=== PATIENT | female | born 1980 | race Caucasian/White ===

== ENCOUNTER 2022-01-11 12:06 | Outpatient (CLI) | payer BC | END 2022-01-11 12:07 | disposition home or self-care (01) | LOC: BICMAMMO 12:06 | PROVIDERS: ATTEND Obstetrics & Gynecology | DX: Z12.31 Encounter for screening mammogram for malignant neoplasm of breast (principal); Z80.3 Family history of malignant neoplasm of breast | CPT/HCPCS: 77063; 77067 ==

== ENCOUNTER 2022-02-19 09:55 | Outpatient (CLI) | payer BC | END 2022-02-19 09:56 | disposition home or self-care (01) | LOC: DTY/OP 09:55 | PROVIDERS: ATTEND Surgery | DX: E66.01 Morbid (severe) obesity due to excess calories (principal); Z68.42 Body mass index [BMI] 45.0-49.9, adult | CPT/HCPCS: 97802 ==

== ENCOUNTER 2022-06-18 11:51 | Outpatient (CLI) | payer BC, OTHER | END 2022-06-18 11:52 | disposition home or self-care (01) | LOC: LABBT 11:51 | PROVIDERS: ATTEND Surgery | DX: Z01.818 Encounter for other preprocedural examination (principal); I73.9 Peripheral vascular disease, unspecified | CPT/HCPCS: 71046; 93005; 93010 ==

== ENCOUNTER 2022-06-29 05:43 | Inpatient (IN) | payer OTHER ==
[2022-06-28 08:56] VITALS: BMI 39.9
[2022-06-29] MEDS ORDERED: Ketamine 50 MG/ML (10ML VIAL) ONE (06:35)
[2022-06-29] MEDS ORDERED: fentaNYL PF 100 MCG/2 ML SYRINGE ONE ×2 (06:35→09:00)
[2022-06-29] MEDS ORDERED: Dexmedetomidine 200 MCG/2 ML VIAL ONE (06:35)
[2022-06-29] MEDS ORDERED: Bupivacaine/Epinephrine 0.25% 30 ML VIAL ONE (06:51)
[2022-06-29] MEDS ORDERED: Levofloxacin 500 mg/D5W 100 ml Premix Bag ONE (07:14)
[2022-06-29] MEDS ORDERED: Ketorolac Tromethamine 30 MG/ML VIAL ONE (07:27)
[2022-06-29] MEDS ORDERED: Phenylephrine 10 MG/ML VIAL ONE (07:27)
[2022-06-29] MEDS ORDERED: Ondansetron PF 4 MG/2 ML Vial ONE ×2 (07:27→14:16)
[2022-06-29] MEDS ORDERED: Rocuronium Bromide 10 MG/ML (10ML VIAL) ONE (07:27)
[2022-06-29] MEDS ORDERED: PROPOFOL 200 MG/20 ML VIAL ONE (07:27)
[2022-06-29] MEDS ORDERED: NEOSTIGMINE 3 MG/3 ML SYR 3 MG/3 ML SYRINGE ONE (07:27)
[2022-06-29] MEDS ORDERED: Glycopyrrolate 0.2 MG/ML 5 ML SYRINGE ONE (07:27)
[2022-06-29] MEDS ORDERED: Dexamethasone 20 MG/5 ML VIAL ONE (07:27)
[2022-06-29 07:48] LABS: SARS-CoV-2 NAA Rapid Test Not Detected (NotDetected)
[2022-06-29] MEDS ORDERED: Promethazine HCl 25 MG/ML VIAL IM PRN ×2 (08:39→08:45)
[2022-06-29] MEDS ORDERED: Dextrose 5% in Water 1,000 ML IV PRN (08:39)
[2022-06-29] MEDS ORDERED: Dextrose 50% Abboject 50 ML SYRINGE SLOW IVP PRN (08:39)
[2022-06-29] MEDS ORDERED: Ondansetron PF 4 MG/2 ML Vial IVP PRN (08:39)
[2022-06-29] MEDS ORDERED: Hydrocodone-Acetamin 15 ML UDCUP PO PRN (08:39)
[2022-06-29] MEDS ORDERED: diphenhydrAMINE 50 MG/ML VIAL IVP PRN ×2 (08:39→08:45)
[2022-06-29] MEDS ORDERED: FENTANYL 500 MCG/10 ML VIAL 2,000 MCG in Sodium Chloride 0.9% 60 ML IV PRN (08:45)
[2022-06-29] MEDS ORDERED: Communication Order-Pharmacy FS SCH (08:45)
[2022-06-29] MEDS ORDERED: Naloxone HCl 0.4 mg/ml Vial IV PRN (08:45)
[2022-06-29] MEDS ORDERED: Promethazine HCl 25 MG/ML VIAL IVPB PRN (08:45)
[2022-06-29] MEDS ORDERED: Ondansetron HCl/PF 4 MG/2 ML Vial IVP PRN (08:45)
[2022-06-29] MEDS ORDERED: diphenhydrAMINE 25 MG CAP PO PRN (08:45)
[2022-06-29] MEDS ORDERED: diphenhydrAMINE 50 MG/ML VIAL IM PRN (08:45)
[2022-06-29] MEDS ORDERED: Promethazine HCl 25 MG/ML VIAL ONE (09:00)
[2022-06-29] MEDS: D5 1/2 NS w/20 mEq KCL 1,000 ML IV SCH ×2 (09:15→17:28)
[2022-06-29] MEDS ORDERED: D5 1/2 NS w/20 mEq KCL 1,000 ML ONE (09:44)
[2022-06-29] MEDS ORDERED: hydrALAZINE 20 MG/ML VIAL ONE ×2 (09:57→14:16)
[2022-06-29] MEDS: Bupropion 150 MG SR TAB PO SCH (13:54)
[2022-06-29] MEDS: Pantoprazole 40 MG VIAL IVP SCH ×2 (13:54→17:28)
[2022-06-29] MEDS: Losartan 25 MG TAB PO SCH (13:54)
[2022-06-29] MEDS: hydrALAZINE 20 MG/ML VIAL SLOW IVP PRN ×2 (14:25→21:57)
[2022-06-29] MEDS: Ondansetron PF 4 MG/2 ML Vial IVP PRN ×2 (14:27→20:12)
[2022-06-29] MEDS: Promethazine HCl 25 MG/ML VIAL IM PRN (16:12)
[2022-06-29] MEDS: Labetalol HCl 100 MG/20 ML VIAL SLOW IVP PRN ×2 (17:32→21:58)
[2022-06-29] MEDS: Carvedilol 6.25 MG TAB PO SCH (21:16)
[2022-06-30] MEDS: D5 1/2 NS w/20 mEq KCL 1,000 ML IV SCH ×4 (01:52→19:48)
[2022-06-30] MEDS ORDERED: Enoxaparin Sodium 40 MG/0.4 ML SYRINGE SC SCH (06:00)
[2022-06-30 06:39] LABS: #Lymphocytes 2.3 thou/uL (1.20-3.40); #Monocytes 1.2 thou/uL (0.11-0.59); #Neutrophils 9.8 thou/uL (1.40-6.50); %Basophils 0.4 % (0.0-1.0); %Eosinophils 0.2 % (0.0-10.0); %Lymphocytes 17.1 % (21.0-51.0); %Monocytes 8.6 % (0.0-10.0); %Neutrophils 73.7 % (42.0-75.0); Hemoglobin 13.3 g/dL (12.0-16.0); Mean Corpuscular HGB CONC 34.2 g/dL (32.0-36.0); Mean Corpuscular Hemoglobin 33.2 pg (27.0-31.0); Mean Platelet Volume 8.1 fL (7.4-10.4); Platelet Count 244 10x3/uL (130-400); RBC Distribution Width 12.2 % (11.5-14.5); Red Blood Cell (RBC) Count 3.99 mill/uL (4.20-5.40); White Blood Cell (WBC) Count 13.3 10x3/uL (4.8-10.8)
[2022-06-30] MEDS: Ketorolac Tromethamine 30 MG/ML VIAL IVP PRN ×2 (06:40→13:06)
[2022-06-30 06:54] LABS: Anion Gap 12 mmol/L (10-20); BUN (Urea Nitrogen) 4 mg/dL (7.0-18.7); Calc. Creatinine Clearance 173 mL/min (70-130); Calcium 8.7 mg/dL (7.8-10.44); Carbon Dioxide 22 mmol/L (22-29); Chloride 107 mmol/L (98-107); Estimated GFR 92; Glucose 116 mg/dL (70-105); Potassium 3.4 mmol/L (3.5-5.1); Sodium 138 mmol/L (136-145)
[2022-06-30] MEDS: Promethazine HCl 25 MG/ML VIAL IM PRN (10:57)
[2022-06-30] MEDS: hydrALAZINE 20 MG/ML VIAL SLOW IVP PRN (11:06)
[2022-06-30] MEDS: Bupropion 150 MG SR TAB PO SCH (12:49)
[2022-06-30] MEDS: Carvedilol 6.25 MG TAB PO SCH ×2 (12:50→19:52)
[2022-06-30] MEDS: Losartan 25 MG TAB PO SCH (12:50)
[2022-06-30] MEDS ORDERED: Meperidine HCl/PF 25 MG/ML VIAL SLOW IVP SCH (13:00)
[2022-06-30] MEDS: Pantoprazole 40 MG VIAL IVP SCH (13:08)
[2022-06-30] MEDS ORDERED: diphenhydrAMINE 50 MG/ML VIAL IM PRN (13:31)
[2022-06-30] MEDS ORDERED: diphenhydrAMINE 25 MG CAP PO PRN (13:31)
[2022-06-30] MEDS ORDERED: HYDROmorphone 10 mg/100 ml CADD IVPB PRN (13:31)
[2022-06-30] MEDS ORDERED: Zolpidem Tartrate 5 MG TAB PO PRN (13:31)
[2022-06-30] MEDS ORDERED: Naloxone HCl 0.4 mg/ml Vial IV PRN (13:31)
[2022-06-30] MEDS ORDERED: Communication Order-Pharmacy FS SCH (13:45)
[2022-06-30] MEDS: diphenhydrAMINE 50 MG/ML VIAL IVP PRN (18:02)
[2022-07-01] MEDS: Promethazine HCl 25 MG/ML VIAL IM PRN ×3 (01:05→15:10)
[2022-07-01] MEDS: Ketorolac Tromethamine 30 MG/ML VIAL IVP PRN ×2 (01:11→10:29)
[2022-07-01] MEDS: D5 1/2 NS w/20 mEq KCL 1,000 ML IV SCH ×2 (04:08→18:05)
[2022-07-01] MEDS: hydrALAZINE 20 MG/ML VIAL SLOW IVP PRN ×3 (04:09→13:22)
[2022-07-01] MEDS: Ondansetron PF 4 MG/2 ML Vial IVP PRN ×3 (06:23→21:14)
[2022-07-01] MEDS ORDERED: Metoclopramide HCl 10 MG/2 ML VIAL IVP SCH (10:00)
[2022-07-01] MEDS: diphenhydrAMINE 50 MG/ML VIAL IVP PRN (10:29)
[2022-07-01] MEDS ORDERED: FENTANYL 50 MCG/ML 1 ML VIAL SLOW IVP PRN (10:43)
[2022-07-01] MEDS ORDERED: SUMAtriptan Succinate 25 MG TAB PO SCH ×2 (13:30→22:15)
[2022-07-01] MEDS: Enoxaparin Sodium 40 MG/0.4 ML SYRINGE SC SCH (15:15)
[2022-07-01] MEDS: Pantoprazole 40 MG VIAL IVP SCH (15:15)
[2022-07-01] MEDS: Cyclobenzaprine 10 MG TAB PO SCH ×2 (15:16→17:58)
[2022-07-01] MEDS: hydrOXYzine 25 MG TAB PO PRN ×2 (15:17→17:59)
[2022-07-01] MEDS: Hydrocodone-Acetamin 15 ML UDCUP PO PRN ×2 (15:27→21:14)
[2022-07-01] MEDS: Bupropion 150 MG SR TAB PO SCH (17:41)
[2022-07-01] MEDS: Carvedilol 6.25 MG TAB PO SCH ×2 (17:41→21:14)
[2022-07-01] MEDS: Losartan 25 MG TAB PO SCH (17:41)
[2022-07-02] MEDS: D5 1/2 NS w/20 mEq KCL 1,000 ML IV SCH ×2 (02:12→11:06)
[2022-07-02] MEDS: Ondansetron PF 4 MG/2 ML Vial IVP PRN (04:47)
[2022-07-02] MEDS: Hydrocodone-Acetamin 15 ML UDCUP PO PRN (04:48)
[2022-07-02] MEDS ORDERED: SUMAtriptan Succinate 50 MG TAB PO PRN (07:29)
[2022-07-02] MEDS ORDERED: Cyclobenzaprine 10 MG TAB PO PRN (08:04)
[2022-07-02] MEDS: Losartan 25 MG TAB PO SCH (08:27)
[2022-07-02] MEDS: Carvedilol 6.25 MG TAB PO SCH (08:28)
[2022-07-02] MEDS: Ketorolac Tromethamine 30 MG/ML VIAL IVP PRN (08:28)
[2022-07-02] MEDS: Bupropion 150 MG SR TAB PO SCH (08:28)
[2022-07-02] MEDS: Pantoprazole 40 MG VIAL IVP SCH (08:28)
[2022-07-02] MEDS: Enoxaparin Sodium 40 MG/0.4 ML SYRINGE SC SCH (08:29)
[2022-07-02 09:25] VITALS: TEMP 97.8
[2022-07-02] MEDS: Promethazine HCl 25 MG/ML VIAL IM PRN (10:29)
[2022-07-02 11:46] VITALS: BP 156/96
== END 2022-07-02 11:26 | disposition home or self-care (01) | DRG 621 ==
LOC: SURG A 05:43
PROVIDERS: ADMIT Surgery; ATTEND Surgery
PROC: 0DB64Z3 Excision of Stomach, Percutaneous Endoscopic Approach, Vertical (ICD-10-PCS; principal; 2022-06-29)
PROC: 8E0W4CZ Robotic Assisted Procedure of Trunk Region, Percutaneous Endoscopic Approach (ICD-10-PCS; 2022-06-29)
DX: E66.01 Morbid (severe) obesity due to excess calories (principal); I10 Essential (primary) hypertension; Z68.41 Body mass index [BMI] 40.0-44.9, adult; G47.00 Insomnia, unspecified; K21.9 Gastro-esophageal reflux disease without esophagitis; Z88.0 Allergy status to penicillin; Z79.899 Other long term (current) drug therapy; G43.909 Migraine, unspecified, not intractable, without status migrainosus
CPT/HCPCS: 36415; 80048; 85025; 88307; C9113; J0360; J1100; J1200; J1650; J1885; J1956; J2370; J2405; J2550; J2704; J2765; J3480; U0002

== ENCOUNTER 2022-07-14 10:58 | Day surgery (SDC) | payer BC ==
[~2022-07-14 10:58] MED LIST: Multivitamins, Adult 10 ML, Thiamine HCl 100 MG in Sodium Chloride 0.9% 1,000 ML IV SCH; Ondansetron PF 4 MG/2 ML Vial IVP PRN; Sodium Chloride 0.9% 1,000 ML IV SCH
[2022-07-14 16:11] VITALS: BP 108/75; TEMP 97
== END 2022-07-14 16:36 | disposition home or self-care (01) ==
LOC: ONC/OP 10:58
PROVIDERS: ATTEND Surgery
DX: E86.0 Dehydration (principal); Z88.0 Allergy status to penicillin; Z88.8 Allergy status to other drugs, medicaments and biological substances
CPT/HCPCS: 96361; 96365; 96366; J3411; J7050

== ENCOUNTER 2022-07-21 10:28 | Day surgery (SDC) | payer BC ==
[2022-07-21] MEDS ORDERED: Ondansetron PF 4 MG/2 ML Vial IVP PRN (10:48)
[2022-07-21] MEDS ORDERED: Sodium Chloride 0.9% 1,000 ML IV SCH (11:00)
[2022-07-21] MEDS ORDERED: Multivitamins, Adult 10 ML, Thiamine HCl 100 MG in Sodium Chloride 0.9% 1,000 ML IV SCH (11:00)
[2022-07-21 12:51] VITALS: BP 131/87; TEMP 97.7
== END 2022-07-21 13:35 | disposition home or self-care (01) ==
LOC: ONC/OP 10:28
PROVIDERS: ATTEND Surgery
DX: E86.0 Dehydration (principal); Z88.0 Allergy status to penicillin; Z88.8 Allergy status to other drugs, medicaments and biological substances
CPT/HCPCS: 96365; 96366; J3411; J7050

== ENCOUNTER 2023-05-19 11:51 | Outpatient (CLI) | payer BC | END 2023-05-19 11:52 | disposition home or self-care (01) | LOC: BICMAMMO 11:51 | PROVIDERS: ATTEND Family Medicine | DX: Z12.31 Encounter for screening mammogram for malignant neoplasm of breast (principal); Z80.3 Family history of malignant neoplasm of breast | CPT/HCPCS: 77063; 77067 ==

== ENCOUNTER 2024-05-22 08:07 | Outpatient (CLI) | payer BC | END 2024-05-22 08:08 | disposition home or self-care (01) | LOC: BICMAMMO 08:07 | PROVIDERS: ATTEND Obstetrics & Gynecology | DX: Z12.31 Encounter for screening mammogram for malignant neoplasm of breast (principal); Z80.3 Family history of malignant neoplasm of breast | CPT/HCPCS: 77063; 77067 ==

== ENCOUNTER 2025-05-23 12:47 | Outpatient (CLI) | payer BC | END 2025-05-23 12:48 | disposition home or self-care (01) | LOC: BICMAMMO 12:47 | PROVIDERS: ATTEND Obstetrics & Gynecology | DX: Z12.31 Encounter for screening mammogram for malignant neoplasm of breast (principal); Z80.3 Family history of malignant neoplasm of breast | CPT/HCPCS: 77063; 77067 ==